=== PATIENT | female | born 2000 | race Two or more races ===

== ENCOUNTER 2022-01-27 02:27 | Emergency (ER) | payer MEDICAID ==
[~2022-01-27] VITALS: Ht 167.6 cm; Wt 77.0 kg
--- NOTE | 2022-01-27 03:57 | PHYS DOC ---
Past Medical History Past Surgical History: Smoking Status: Current Every Day Smoker Alcohol Use: Rarely General Adult EDM: Chief Complaint: GI PROBLEM HPI: HPI: Patient is a 21 year old female who presents with almost a year of intermittent right upper quadrant pain. The pain is mostly postprandial. She reports multiple episodes of nausea and vomiting. Her pain seemed worse tonight than usual. She reports that she was seen once at [facility] ER and that she had a normal chest x-ray. She denies any blood work or ultrasound or abdominal imaging was done. She is very vague and uncertain of the specifics of that visit. This was some time ago apparently. She has not been seen by primary care physician for this problem. She denies lower abdominal pain. She denies chest pain, cough, dyspnea. She denies fevers or chills. She denies urinary symptoms. She reports a few episodes of diarrhea. No melena or hematochezia. No hematemesis reported. She denies fevers or chills. She denies anorexia. She admits that often her pain is worse after eating heavy amounts of food, greasy, spicy or salty or fried foods. LMP about 1 month ago, she is a few days late. She denies vaginal discharge or bleeding. Review of Systems: Review of Systems: Constitutional: Denies fever or chills. [] HENT: Denies nasal congestion or sore throat. [] Respiratory: Denies cough or shortness of breath. [] Cardiovascular: Denies chest pain or edema. [] GI: Right upper quadrant Alexis pain, nausea, vomiting, diarrhea : Denies Dev symptoms. Denies pelvic pain. Denies vaginal discharge or bleeding. Musculoskeletal: Denies back pain or joint pain. [] Integument: Denies rash. [] Neurologic: Denies headache, focal weakness or sensory changes. [] Psychiatric: Denies depression or anxiety. [] Heart Score: C/O Chest Pain: No Risk Factors: Risk Factors: DM, Current or recent (<one month) smoker, HTN, HLP, family history of CAD, obesity. Risk Scores: Score 0 - 3: 2.5% MACE over next 6 weeks - Discharge Home Score 4 - 6: 20.3% MACE over next 6 weeks - Admit for Clinical Observation Score 7 - 10: 72.7% MACE over next 6 weeks - Early Invasive Strategies Allergies: Allergies: Allergies Coded Allergies Type Severity Reaction Last Updated Verified No Known Drug Allergies 01/27/22 No Physical Exam: PE: Constitutional: Well developed, well nourished, no acute distress, non-toxic appearance. [] HENT: Normocephalic, atraumatic, mucous membranes are moist Eyes: Sclera are anicteric, no evidence of trauma, conjunctival normal Neck: Normal range of motion, no tenderness, supple, no stridor. Trachea midline. Cardiovascular:Heart rate regular rhythm, +2 radial and +2 posterior tibial pulses bilaterally Lungs & Thorax: Bilateral breath sounds clear to auscultation [] Abdomen: Devins obese, soft, nondistended, right upper quadrant tenderness to palpation. Voluntary guarding. Negative Hall's. No lower abdominal tenderness. No palpable masses organomegaly. No CVA tenderness. No flank or abdominal ecchymoses are noted. Skin: Warm, dry, no erythema, no rash. No jaundice. Back: No tenderness, no CVA tenderness. [] Extremities: No tenderness, no cyanosis, no clubbing, ROM intact, no edema. No calf tenderness. Neurologic: Alert and oriented X 3, normal motor function, normal sensory function, no focal deficits noted. [] Psychologic: Affect normal, judgement normal, mood normal. [] Current Patient Data: Vital Signs: Vital Signs Date Time Temp Pulse Resp B/P (MAP) Pulse Ox O2 Delivery O2 Flow Rate FiO2 01/27/22 03:44 97.5 73 18 108/55 (72) 100 Room Air 97.5 EKG: EKG: [] Radiology/Procedures: Radiology/Procedures: IMAGING REPORT Signed PATIENT: AC BLANCASACCOUNT: [id number] : 2000 LOCATION: ER AGE: 21 SEX: F EXAM STATUS: REG ER ORD. PHYSICIAN: AMAURI KELLOGG DO REASON: RUQ pain PROCEDURE: ABDOMEN LTD EXAMINATION: US ABDOMEN LIMITED 01/27/2022 4:29 AM INDICATION: Right upper quadrant pain TECHNIQUE: Virk scale and color Doppler ultrasound images of the right upper quadrant were obtained. COMPARISON: None. FINDINGS: Liver: The right hepatic lobe is partially obscured by bowel gas. The liver is normal in size measuring 16.7 cm in length. Normal hepatic echogenicity. No focal liver lesion. Gallbladder: The gallbladder is normal in caliber. There are multiple large echogenic shadowing calculi in the gallbladder lumen. The gallbladder wall is normal in thickness measuring 2 mm Bile ducts: The common bile duct is normal measuring 5 mm. No intrahepatic biliary duct dilatation. Right kidney: The right kidney measures 10.5 x 4.7 x 4.6 cm. Normal cortical thickness and echogenicity. No hydronephrosis. Other: The IVC is patent at the level of the liver. The pancreas is normal where visualized. IMPRESSION: Cholelithiasis. Electronically signed by: Martha Sanchez MD (01/27/2022 5:40 AM) [facility] DICTATED and SIGNED BY: MARTHA SANCHEZ MD DATE: 01/27/22 [id number] 0 Course & Med Decision Making: Course & Med Decision Making Pertinent Labs and Imaging studies reviewed. (See chart for details) The patient is given IV fluids, IV Zofran. She declined any pain medications here. UCG is positive. Ultrasound demonstrates cholelithiasis, no evidence of cholecystitis. I discussed the findings, differential diagnosis and plan of care. She denies any lower abdominal pain, pelvic pain, vaginal bleeding. I told her that she needs to follow-up with outpatient [facility]. She is given a litany of outpatient resources for this. Regarding her cholelithiasis, she is also given outpatient referrals for general surgery. She will need to establish either care or decide how she wants to proceed with positive before definitive surgical intervention will be performed. I gave her very strict return precautions. I discussed home care instructions, dietary modification. She is comfortable with the plan for discharge home. Strict return precautions are given. Dragon Disclaimer: Dragon Disclaimer: This electronic medical record was generated, in whole or in part, using a voice recognition dictation system. Departure Departure Impression: Primary Impression: Symptomatic cholelithiasis Additional Impression: Positive test Disposition: HOME / SELF CARE / HOMELESS Condition: STABLE Referrals: NO PCP (PCP) JAGJIT FLANAGAN MD Patient Instructions: ABCs of , Cholelithiasis Additional Instructions: Please return to the ER if you develop a temperature 100.4 or higher, if you develop yellowing of the skin or eyes, if you develop uncontrolled vomiting, dehydration, more severe uncontrolled pain or for any other concerns. You will need to follow-up with a primary care physician. You are also being given information for outpatient general surgery services. I am also providing you with outpatient clinic resources to assist you with your . In addition, if you develop any severe pelvic pain, vaginal bleeding, please return to the ER immediately. [facility] [phone] [email or web address] [facility] information for [facility] [phone] Scripts Ondansetron Hcl (ONDANSETRON HCL) 4 Mg Tablet 1 TAB PO PRN Q8HRS PRN for VOMITING, #20 TAB 1 Refill Prov: AMAURI KELLOGG DO 01/27/22 Hydrocodone Bit/Acetaminophen (HYDROCODONE-APAP 5-325 ) 1 Tab Tablet 1 TAB PO PRN Q6HRS PRN for PAIN, #20 TAB 0 Refills Prov: AMAURI KELLOGG DO 01/27/22 AMAURI KELLOGG DO Jan 27, 2022 03:57
[2022-01-27 04:26] LABS: BASO % 1 % (0-3); EOS # 0.2 x10^3/uL (0.0-0.7); EOS % 2 % (0-3); HEMATOCRIT 35.9 % (36.0-47.0); HEMOGLOBIN 12.4 g/dL (12.0-15.5); LYMPH # 2.5 x10^3/uL (1.0-4.8); LYMPH % 27 % (24-48); MEAN CORPUSCULAR HEMOGLOBIN 27 pg (25-35); MEAN CORPUSCULAR HGB CONC 35 g/dL (31-37); MEAN CORPUSCULAR VOLUME 79 fL (79-100); MONO # 0.5 x10^3/uL (0.0-1.1); MONO % 5 % (0-9); NEUT # 6.2 x10^3/uL (1.8-7.7); NEUT % 66 % (31-73); PLATELET COUNT 278 x10^3/uL (140-400); RED BLOOD COUNT 4.55 x10^6/uL (3.50-5.40); RED CELL DISTRIBUTION WIDTH 14.5 % (11.5-14.5); WHITE BLOOD COUNT 9.5 x10^3/uL (4.0-11.0)
[2022-01-27 04:30] LABS: BILIRUBIN,URINE NEGATIVE (NEG); CLARITY,URINE CLEAR; COLOR,URINE YELLOW
[2022-01-27] MEDS ORDERED: IV NORMAL SALINE 1000ML BAG 1,000 ML IV ONE (04:30)
[2022-01-27] MEDS ORDERED: ONDANSETRON PF 4 MG/2 ML VIAL. IVP ONE (04:30)
[2022-01-27 04:32] LABS: NITRITE,URINE NEGATIVE (NEG); PROTEIN,URINE NEGATIVE (NEG-TRACE); UROBILINOGEN,URINE 0.2 mg/dL (0.2 mg/dL)
[2022-01-27 04:33] LABS: BACTERIA,URINE 0 /HPF (0-FEW); RBC,URINE 0 /HPF (0-2); WBC,URINE OCC /HPF (0-4)
[2022-01-27 04:34] LABS: CALCIUM 7.9 mg/dL (8.5-10.1); CREATININE 0.6 mg/dL (0.6-1.0); GFR 128.8; POTASSIUM 3.4 mmol/L (3.5-5.1)
[2022-01-27 04:40] LABS: ALBUMIN 3.5 g/dL (3.4-5.0); ALBUMIN/GLOBULIN RATIO 0.9 (1.0-1.7); TOTAL BILIRUBIN 0.3 mg/dL (0.2-1.0); TOTAL PROTEIN 7.3 g/dL (6.4-8.2)
[2022-01-27 05:15] VITALS: BP 91/54
--- NOTE | 2022-01-27 05:43 | RAD ---
EXAMINATION: US ABDOMEN LIMITED 01/27/2022 4:29 AM INDICATION: Right upper quadrant pain TECHNIQUE: Virk scale and color Doppler ultrasound images of the right upper quadrant were obtained. COMPARISON: None. FINDINGS: Liver: The right hepatic lobe is partially obscured by bowel gas. The liver is normal in size measuri ng 16.7 cm in length. Normal hepatic echogenicity. No focal liver lesion. Gallbladder: The gallbladder is normal in caliber. There are multiple large echogenic shadowing calc cate in the gallbladder lumen. The gallbladder wall is normal in thickness measuring 2 mm Bile ducts: The common bile duct is normal measuring 5 mm. No intrahepatic biliary duct dilatation. Right kidney: The right kidney measures 10.5 x 4.7 x 4.6 cm. Normal cortical thickness and echogenic ity. No hydronephrosis. Other: The IVC is patent at the level of the liver. The pancreas is normal where visualized. IMPRESSION: Cholelithiasis. Electronically signed by: Martha Sanchez MD (01/27/2022 5:40 AM) [facility]
[2022-01-27] MEDS ORDERED: ONDA-84 PO (06:01)
[2022-01-27] MEDS ORDERED: HYDR-2761 PO (06:01)
== END 2022-01-27 06:09 | disposition home or self-care (01) ==
LOC: ER 02:27
DX: O99.611 Diseases of the digestive system complicating pregnancy, first trimester (principal); K80.20 Calculus of gallbladder without cholecystitis without obstruction; O99.331 Smoking (tobacco) complicating pregnancy, first trimester; Z3A.00 Weeks of gestation of pregnancy not specified
CPT/HCPCS: 36415; 76705; 80053; 81001; 81025; 83690; 84702; 85025; 96361; 96374; 99284; J2405; J7030